=== PATIENT | female | born 1970 | race Caucasian/White ===

== ENCOUNTER 2020-11-23 07:54 | Outpatient (CLI) | payer BC, SELFPAY ==
--- NOTE | ~2020-11-23 | MM_ITS ---
EXAMINATION: MM screening silvia BI w braydon HISTORY: Screening TECHNIQUE: Craniocaudal and mediolateral oblique 3-D tomosynthesis images were obtained and synthetic 2-D images were generated. CAD analysis was submitted and interpreted. COMPARISON: 06/09/2017 BREAST PARENCHYMAL COMPOSITION: There are scattered areas of fibroglandular density. FINDINGS: There is no evidence of suspicious mass, calcification, or architectural distortion to sugg est malignancy in either breast. There has been no suspicious interval change. IMPRESSION: 1. No mammographic evidence of malignancy. 2. Recommend routine screening mammography in one year. BI-RADS Category 1: Negative Reviewed, dictated and finalized at location A.
== END 2020-11-23 07:55 | disposition home or self-care (01) ==
PROVIDERS: PCP Family Medicine; Visit Provider Family Medicine
DX: Z12.31 Encounter for screening mammogram for malignant neoplasm of breast (principal)
CPT/HCPCS: 77063; 77067

== ENCOUNTER 2021-11-24 11:35 | Emergency (ER) | payer BC, SELFPAY ==
--- NOTE | ~2021-11-24 | XR_ITS ---
EXAMINATION: XR chest 2V DATE: 11/24/2021 12:36 INDICATION: Midsternal chest pain and pressure TECHNIQUE: PA and lateral views of the chest are obtained. COMPARISON: 04/02/2013 FINDINGS: The lungs are free of acute opacities. There is no pleural effusion or pneumothorax. The ca rdiomediastinal silhouette is normal. There is mild thoracic spondylosis. There is a partially imaged right internal ureteral stent. IMPRESSION: 1. No acute cardiopulmonary abnormality. Reviewed, dictated and finalized at location A.
[2021-11-24 11:37] VITALS: BP 163/100; PULSE 74; RESP 14; TEMP 36.6; O2SAT 100
--- NOTE | 2021-11-24 11:43 | ECG_ITS ---
Measurements Intervals [place] Rate: 69 P: -11 IA: 112 QRS: 52 QRSD: 90 T: 7 QT: 372 QTc: 399 Interpretive Statements SINUS RHYTHM WITH SHORT IA INTERVAL ST ABNORMALITY IN LATERAL LEADS- CONSIDER ISCHEMIA BASELINE ARTIFACT- I, III, AVL ABNORMAL ECG Electronically Signed On 11-24-2021 18:54:41 CDT by Yury Shafer D.O.
[2021-11-24 11:58] LABS: Basophils Percent Auto 0.8 % (0.2-1.2); Eosinophils Absolute Auto 0.2 K/mm3 (0-0.3); Eosinophils Percent Auto 3.1 % (0-4.4); Hematocrit 41.7 % (37.0-47.0); Hemoglobin 14.2 g/dL (12.0-15.0); Immature Granulocyte Absolute 0.01 K/mm3 (0.00-0.031); Immature Granulocyte Percent A 0.2 % (0-0.5); Lymphocytes Absolute Auto 2.22 K/mm3 (0.9-3.2); Lymphocytes Percent Auto 45.8 % (18.3-44.2); Mean Corpuscular HGB Conc 34.1 g/dl (32-36); Mean Corpuscular Hemoglobin 30.4 pg (26-34); Mean Corpuscular Volume 89.3 fl (80-100); Mean Platelet Volume 9.9 fl (7.4-10.4); Monocytes Absolute Auto 0.4 K/mm3 (0.1-0.6); Monocytes Percent Auto 7.6 % (2.6-8.5); Neutrophils Absolute Auto 2.1 K/mm3 (1.3-6.7); Neutrophils Percent Auto 42.5 % (45.5-73.1); Platelet Count Result 257 k/mm3 (150-375); Red Blood Count 4.67 M/mm3 (4.2-5.4); Red Cell Distribution Width 12.9 % (11.5-14.5); White Blood Count 4.9 K/mm3 (4.5-10.0)
--- NOTE | 2021-11-24 11:59 | PC.NURSE ---
PT took 2 - 324mg aspirin at home prior to arrival
[2021-11-24 12:09] LABS: Alanine Aminotransferase 34 U/L (6-35); Albumin Level 4.5 g/dL (3.5-5.1); Alkaline Phosphatase 92 U/L (38-126); Anion Gap 8 mmol/L (8-16); Aspartate Amino Transferase 40 U/L (14-36); Bilirubin,Total 0.6 mg/dL (0.2-1.3); Blood Urea Nitrogen 23 mg/dL (7-17); Calcium 9.5 mg/dL (8.4-10.2); Carbon Dioxide 25 mmol/L (22-30); Chloride 105 mmol/L (98-107); Estimated CRCL calculation 57 ml/min; Estimated Glomerular Filt Rate 58; Glucose 126 mg/dL (65-110); Lipase 139 U/L (23-300); Potassium 3.7 mmol/L (3.4-5.0); Sodium 138 mmol/L (137-145)
[2021-11-24 12:11] LABS: INR 0.9; Prothrombin Time 11.8 Seconds (11.1-14.7)
[2021-11-24 12:19] LABS: Troponin I < 0.012 ng/mL (0.000-0.034)
--- NOTE | 2021-11-24 12:58 | ED.CHESTPAIN ---
HPI - Chest Pain General Chief Complaint: Chest Pain Stated Complaint: chest pain Time Seen by Provider: 11/24/21 12:13 Source: patient Limitations: no limitations History of Present Illness HPI narrative: Patient is 51 years old white female came to the emergency room because sudden onset of retrosternal chest dull aching pain started while trying to fix her bed. Was 10 out of 10, denies any radiation, she denies any fever, chills, nausea, vomiting, shortness of breath, back pain or having similar symptoms. History of EGD July 2021 for GERD. Currently her pain Is 4 out of 10. Patient is a status post lithotripsy and stent placement at the right kidney 1 week ago, finished antibiotic 2 days ago. She denies any history of hypertension, hyperlipidemia or diabetes. Her mom had a heart attack at age 60. Patient does not smoke or drink or uses drugs. Related Data Home Medications Medication Instructions Recorded Confirmed esomeprazole magnesium 20 mg 20 mg PO DAILY 06/10/21 06/10/21 tablet,delayed release fluticasone propionate 50 1 spray INTRANASAL BID 06/10/21 06/10/21 mcg/actuation nasal spray,suspension Allergies Allergy/AdvReac Type Severity Reaction Status Date / Time acetaminophen Allergy Intermediate Verified 03/11/19 12:05 hydrocodone Allergy Intermediate Verified 03/11/19 12:05 Review of Systems Review of Systems: All systems reviewed & are unremarkable except as noted in HPI and below PMFSH Past Medical History Medical History Abnormal fasting glucose Acute low back pain with right-sided sciatica Adult BMI 32.0-32.9 kg/sq m Anxiety Benign colon polyp last colonoscopy 2018 with 1 polyp with recheck in 5 years. BMI 30.0-30.9,adult BMI 33.0-33.9,adult Breast cancer screening by mammogram Normal mammogram 11/23/2020 COVID (04/25/21) Fully vaccinated and then COVID illness Diverticulitis Diverticulosis of colon Epigastric pain Fibromyalgia GERD (gastroesophageal reflux disease) Leukopenia Nasal congestion Obstructive sleep apnea on CPAP Renal and ureteric calculus Renal calculi Seasonal allergic rhinitis Urethral irritation UTI (urinary tract infection) Surgical History Surgical History H/O: hysterectomy (~2012) History of partial hysterectomy (~2007) Family History Family History Mother Acute myocardial infarction Father Hypertension COPD (chronic obstructive pulmonary disease) Grandparent COPD (chronic obstructive pulmonary disease) Cerebrovascular accident Cancer Grandparent Suicide Grandparent Cancer Arthritis Grandparent Cerebrovascular accident Cancer Sibling Hypertension Social History Social History Smoking status: Never smoker Alcohol intake: current Alcohol use details: a few 2 to 3 times a month Substance use: never Substance use type: does not use Exam Narrative: General appearance: Well-developed, well-nourished Skin: Normal color Head: Normocephalic, nontraumatic Eyes: Clear conjunctiva ENT: Oropharynx normal, ears normal, nose normal Neck: Supple, nontender Chest and respiratory: Airway patent, no respiratory distress, no accessory muscle use Heart: Regular rate/rhythm Abdomen: Soft, mild epigastric tenderness, no organomegaly, quiet bowel sounds Vascular: Normal peripheral pulses, normal capillary refill. Musculoskeletal: Normal range of motion, nontender back Neurologic: Alert and oriented ?3, HEAD OF COMMISSION DEPARTMENT is normal as tested, no gross motor deficit
[2021-11-24 13:12] LABS: Appearance Urine Clear (Clear); Bilirubin Urine Negative (Negative); Blood Urine 2+ (Negative); Glucose Urine UA Negative (Negative); Ketones Urine Negative (Negative); Leukocyte Esterase Ur 2+ LEU/UL (Negative); Nitrate Urine Negative (Negative); Protein Urine Negative (Negative); Specific Grav Ur 1.015 (1.001-1.035); Urobilinogen Urine 0.2 mg/dL (<2.0); pH Urine 7.5 (5.0-9.0)
[2021-11-24] MEDS: ONDANSETRON INJ 4 MG/2 ML VIAL IV PUSH (13:12)
[2021-11-24] MEDS: SODIUM CHLORIDE 0.9% IV 1,000 ML 999 ML IV CONT (13:12)
[2021-11-24 13:15] LABS: Add Urine Microscopic? YES; Color Urine Light Yellow (Yellow)
[2021-11-24 13:15] LABS: Lipase 138 U/L (23-300)
[2021-11-24 13:16] LABS: D Dimer 0.44 ug/mL (<0.48)
[2021-11-24 13:19] LABS: Bacteria Urine Trace /hpf; Mucus Urine Rare /lpf; Squamous Epithelial Cell Urine Rare /hpf (Few); WBC Urine 21-30 /hpf
[2021-11-24] MEDS: MORPHINE SULFATE (*CRX) 4 MG/ML INJ IV PUSH (13:19)
[2021-11-24 13:23] VITALS: BP 127/76; PULSE 71; RESP 16; O2SAT 99
[2021-11-24 13:31] VITALS: O2SAT 99
[2021-11-24 14:59] VITALS: BP 134/86; PULSE 60; RESP 18; O2SAT 98
[2021-11-24 15:12] LABS: Troponin I < 0.012 ng/mL (0.000-0.034)
--- NOTE | 2021-11-24 15:28 | ECG_ITS ---
Measurements Intervals [place] Rate: 50 P: 34 MS: 118 QRS: 36 QRSD: 82 T: 16 QT: 428 QTc: 391 Interpretive Statements SINUS BRADYCARDIA WITH SHORT MS INTERVAL BASELINE ARTIFACT- I, III BORDERLINE ECG Electronically Signed On 11-24-2021 18:57:31 CDT by Yury Shafer D.O.
[2021-11-24 15:56] VITALS: BP 122/80; PULSE 61; RESP 16; O2SAT 100
== END 2021-11-24 15:55 | disposition home or self-care (01) ==
PROVIDERS: Emergency Medicine; Emergency Provider Emergency Medicine; PCP Family Medicine
DX: R07.9 Chest pain, unspecified (principal); N39.0 Urinary tract infection, site not specified; K21.9 Gastro-esophageal reflux disease without esophagitis; G47.33 Obstructive sleep apnea (adult) (pediatric); M79.7 Fibromyalgia; Z86.010 Personal history of colon polyps; Z86.16 Personal history of COVID-19; Z87.442 Personal history of urinary calculi; R94.31 Abnormal electrocardiogram [ECG] [EKG]; R00.1 Bradycardia, unspecified
CPT/HCPCS: 36415; 71046; 80053; 81001; 83690; 84484; 85025; 85380; 85610; 85730; 87077; 87086; 87088; 93005; 96361; 96374; 96375; 99284; J2270; J2405; J7030

== ENCOUNTER 2022-03-11 10:58 | Outpatient (CLI) | payer BC, SELFPAY ==
--- NOTE | ~2022-03-11 | XR_ITS ---
EXAMINATION: XR abdomen/kub 1V INDICATION: History of urolithiasis TECHNIQUE: Supine views of the abdomen were obtained on 2 radiographs. COMPARISON: None FINDINGS: There appear to be at least three adjacent stones of the left kidney which measure 2 mm, 4 mm, and 5 mm. No stones are identified in the right kidney or along the expected courses of ureters. The visualized lung bases are clear. The bowel gas pattern is normal. A moderate volume of colonic st ool is present. There is mild osteoarthritis of the hips. IMPRESSION: 1. Left nephrolithiasis. Reviewed, dictated and finalized at location B. IMPRESSION: 1. Left nephrolithiasis.
== END 2022-03-11 10:59 | disposition home or self-care (01) ==
LOC: ANHIMG 11:00
PROVIDERS: PCP Family Medicine; Visit Provider Urology
DX: N20.0 Calculus of kidney (principal)
CPT/HCPCS: 74018

== ENCOUNTER 2022-05-03 09:51 | Emergency (ER) | payer BC, SELFPAY ==
--- NOTE | ~2022-05-03 | CT_ITS ---
EXAMINATION: CT abdomen pelvis wo con DATE: 05/03/2022 10:37 INDICATION: Low abdominal pain. TECHNIQUE: Computed tomography (CT) of the abdomen and pelvis was performed without intravenous contr ast. Automated exposure control and iterative reconstruction technique were employed. The dose-length product was 293.11 mGy-cm. COMPARISON: CT abdomen and pelvis 01/04/2012 FINDINGS: The visualized portions of the lung bases demonstrate mild atelectasis. No pleural effusion . The heart size is normal. No pericardial effusion. The liver, gallbladder, spleen, pancreas, and ad renal glands are normal. There are approximately 4 stones in right kidney measuring up to 13 mm. Ther e are approximately 5 stones in left kidney measuring up to 3 mm. There is mild left hydronephrosis a nd hydroureter. There is a 3 mm stone in distal left ureter. There is diverticulosis of the colon wit hout evidence of diverticulitis. There are no dilated loops of bowel. The appendix is not visualized. There are no pathologically enlarged lymph nodes. There is no free intraperitoneal fluid. There is m oderate thoracic spondylosis and mild lumbar spondylosis. IMPRESSION: 1. 3 mm stone in distal left ureter with mild left hydronephrosis and hydroureter. 2. Bilateral nonobstructing kidney stones. Reviewed, dictated and finalized at location A. IMPRESSION: 1. 3 mm stone in distal left ureter with mild left hydronephrosis and hydrouret er. 2. Bilateral nonobstructing kidney stones.
[2022-05-03 09:53] VITALS: BP 182/88; PULSE 59; RESP 18; TEMP 36.1; O2SAT 100
--- NOTE | 2022-05-03 10:14 | ED.GENADULT ---
HPI - General Adult General Chief complaint: Abdominal Pain Stated complaint: post op lithotripsy, fever/pain Time Seen by Provider: 05/03/22 09:53 History of Present Illness HPI narrative: 51-year-old female presented to the emergency department for evaluation of worsening left flank pain. Patient does have a significant history of ureteral calculi. Patient had lithotripsy done on Thursday by Dr. Avila. Patient states that she had been pain-free and was able to do her water aerobics yesterday. Patient woke up this morning and was having intense left flank pain. Patient is having some associated nausea and vomiting. Patient states she felt warm at home but did not measure her temperature. Patient was afebrile upon arrival to the emergency department. Patient has a past medical history of fibromyalgia, urinary tract infection, ureteral calculi. Related Data Home Medications Medication Instructions Recorded Confirmed esomeprazole magnesium 20 mg 20 mg PO DAILY 06/10/21 06/10/21 tablet,delayed release (Nexium 24HR) fluticasone propionate 50 1 spray intranasal BID 06/10/21 06/10/21 mcg/actuation nasal spray,suspension (Flonase Allergy Relief) Allergies Allergy/AdvReac Type Severity Reaction Status Date / Time acetaminophen Allergy Intermediate Verified 03/11/19 12:05 hydrocodone Allergy Intermediate Verified 03/11/19 12:05 Review of Systems Review of Systems: CONSTITUTIONAL: Denies fever, chills, or sweats. EYES: Denies visual changes, redness, or discharge. ENT: Denies rhinorrhea, congestion, sore throat, or otalgia. CARDIOVASCULAR: Denies chest pain, palpitations, or edema. RESPIRATORY: Denies cough or dyspnea. GASTROINTESTINAL: See HPI GENITOURINARY: See HPI SKIN: Denies rash or itching. MUSCULOSKELETAL: Denies back pain, joint pain, or myalgia. NEUROLOGIC: Denies headache, numbness, or weakness. PSYCHIATRIC: Denies anxiety or depression. [facility] Past Medical History Medical History Abnormal fasting glucose Acute low back pain with right-sided sciatica Adult BMI 32.0-32.9 kg/sq m Anxiety Benign colon polyp last colonoscopy 2018 with 1 polyp with recheck in 5 years. BMI 30.0-30.9,adult BMI 33.0-33.9,adult Breast cancer screening by mammogram Normal mammogram 11/23/2020 COVID (04/25/21) Fully vaccinated and then COVID illness Diverticulitis Diverticulosis of colon Epigastric pain Fibromyalgia GERD (gastroesophageal reflux disease) Leukopenia Nasal congestion Obstructive sleep apnea on CPAP Renal and ureteric calculus Renal calculi Seasonal allergic rhinitis Urethral irritation UTI (urinary tract infection) Surgical History Surgical History H/O: hysterectomy (~2012) History of partial hysterectomy (~2007) Family History Family History Mother Acute myocardial infarction Father Hypertension COPD (chronic obstructive pulmonary disease) Grandparent COPD (chronic obstructive pulmonary disease) Cerebrovascular accident Cancer Grandparent Suicide Grandparent Cancer Arthritis Grandparent Cerebrovascular accident Cancer Sibling Hypertension Social History Social History Smoking status: Never smoker Alcohol intake: current Alcohol use details: a few 2 to 3 times a month Substance use: never Substance use type: does not use Exam Narrative: APPEARANCE: Well appearing, no pain, no distress, well-nourished. HEAD: normocephalic, atraumatic. EYES: PERRLA/EOMI, conjunctivae clear. NOSE: Normal no drainage NECK: Supple. No adenopathy, no masses. RESPIRATORY: Airway patent, respirations nonlabored. Clear to auscultation bilaterally, no rales, rhonchi, wheezing. CARDIOVASCULAR: Regular rate and rhythm without murmu
[2022-05-03] MEDS: MORPHINE SULFATE (*CRX) 4 MG/ML INJ IV PUSH (10:19)
[2022-05-03] MEDS: ONDANSETRON INJ 4 MG/2 ML VIAL IV PUSH (10:19)
[2022-05-03 10:25] LABS: Basophils Percent Auto 0.3 % (0.2-1.2); Eosinophils Absolute Auto 0.1 K/mm3 (0-0.3); Eosinophils Percent Auto 1.2 % (0-4.4); Hematocrit 41.4 % (37.0-47.0); Hemoglobin 13.4 g/dL (12.0-15.0); Immature Granulocyte Absolute 0.03 K/mm3 (0.00-0.031); Immature Granulocyte Percent A 0.5 % (0-0.5); Lymphocytes Absolute Auto 1.19 K/mm3 (0.9-3.2); Lymphocytes Percent Auto 18.3 % (18.3-44.2); Mean Corpuscular HGB Conc 32.4 g/dl (32-36); Mean Corpuscular Hemoglobin 30.2 pg (26-34); Mean Corpuscular Volume 93.2 fl (80-100); Mean Platelet Volume 10.2 fl (7.4-10.4); Monocytes Absolute Auto 0.4 K/mm3 (0.1-0.6); Monocytes Percent Auto 6.5 % (2.6-8.5); Neutrophils Absolute Auto 4.8 K/mm3 (1.3-6.7); Neutrophils Percent Auto 73.2 % (45.5-73.1); Platelet Count Result 265 k/mm3 (150-375); Red Blood Count 4.44 M/mm3 (4.2-5.4); Red Cell Distribution Width 13.2 % (11.5-14.5); White Blood Count 6.5 K/mm3 (4.5-10.0)
[2022-05-03 10:32] LABS: Add Urine Microscopic? YES; Appearance Urine Cloudy (Clear); Bilirubin Urine Negative (Negative); Blood Urine 3+ (Negative); Color Urine Yellow (Yellow); Glucose Urine UA Negative (Negative); Ketones Urine Negative (Negative); Leukocyte Esterase Ur 1+ LEU/UL (Negative); Mucus Urine Rare /lpf; Nitrate Urine Negative (Negative); Protein Urine Negative (Negative); RBC Urine >75 /hpf (0-2); Specific Grav Ur 1.018 (1.001-1.035); Squamous Epithelial Cell Urine Occasional /hpf (Few); Urobilinogen Urine Negative mg/dL (<2.0); WBC Urine 31-50 /hpf
[2022-05-03 10:36] LABS: Lactic Acid Reflex 1.3 mmol/L (0.7-2.0)
[2022-05-03 10:38] LABS: Alanine Aminotransferase 34 U/L (6-35); Albumin Level 4.6 g/dL (3.5-5.1); Alkaline Phosphatase 70 U/L (38-126); Anion Gap 11 mmol/L (8-16); Aspartate Amino Transferase 31 U/L (14-36); Bilirubin,Total 0.6 mg/dL (0.2-1.3); Blood Urea Nitrogen 28 mg/dL (7-17); Calcium 8.8 mg/dL (8.4-10.2); Carbon Dioxide 27 mmol/L (22-30); Chloride 100 mmol/L (98-107); Estimated CRCL calculation 64 ml/min; Estimated Glomerular Filt Rate > 60; Glucose 118 mg/dL (65-110); Potassium 4.1 mmol/L (3.4-5.0); Sodium 138 mmol/L (137-145)
[2022-05-03] MEDS: KETOROLAC 15 MG/ML VIAL (*BKC) IV PUSH (11:08)
[2022-05-03 11:14] VITALS: BP 159/94; PULSE 60; RESP 18; O2SAT 100
[2022-05-03 11:45] VITALS: BP 152/86; PULSE 91; RESP 18; O2SAT 98
[2022-05-03] MEDS: TAMSULOSIN HCL 0.4 MG CAPSULE PO (11:48)
[2022-05-03 12:01] VITALS: BP 139/81; PULSE 90; RESP 19; O2SAT 98
== END 2022-05-03 13:01 | disposition home or self-care (01) ==
PROVIDERS: Emergency Provider Emergency Medicine; PCP Family Medicine
DX: N13.2 Hydronephrosis with renal and ureteral calculous obstruction (principal); G47.33 Obstructive sleep apnea (adult) (pediatric); K21.9 Gastro-esophageal reflux disease without esophagitis; M79.7 Fibromyalgia; F41.9 Anxiety disorder, unspecified
CPT/HCPCS: 36415; 74176; 80053; 81001; 83605; 85025; 87086; 96365; 96375; 99284; A9270; J0696; J1885; J2270; J2405

== ENCOUNTER 2025-04-04 10:16 | Outpatient (CLI) | payer BC, SELFPAY ==
--- NOTE | 2025-04-04 10:32 | ECG_ITS ---
Test Date: 2025-04-04 10:43:11 Measurements Intervals [place] Rate: 75 P: 29 SC: 125 QRS: 40 QRSD: 84 T: 13 QT: 382 QTc: 428 Interpretive Statements SINUS RHYTHM NORMAL ECG No previous ECG available for comparison Electronically Signed On 04-04-2025 12:09:57 CDT by Ronal Dennis M.D.
--- NOTE | 2025-04-04 10:44 | EST_ITS ---
Patient Info Name: Kathie Ragland Age: 54 years : 1970 Gender: Female Ht: 52 in Wt: 170 lbs BSA: 1.74 m2 HR: 73 bpm BP: 124 / 59 mmHg Exam Date: 04/04/2025 10:44 AM Patient Status: O Admit Date: 04/04/2025 Exam Type: CA stress test treadmill A treadmill exercise stress test was performed. Staff Attending Provider: Felipa Mahmood Exercise Technologist: Faiza Ojeda Exercise Physician: Yury Shafer DO Summary 1. 1. Negative Micheal exercise stress test for ischemic ST changes by ECG criteria. 2. 2. Good functional capacity, achieving 8.9 METs of workload. 3. 3. Appropriate HR response to exercise. 4. 4. Appropriate HR recovery at 1 minute post exercise. 5. 5. No imaging with stress testing. 6. 6. Patient informed of the above results. Protocol: Micheal Stress ECG Details Stage: REST Duration (min): 2 min : 34 sec Speed (mph): 0.0 Grade (%): 0 HR (bpm): 70 SBP (mmHg): 124 DBP (mmHg): 59 METS: --- Stage: REST Duration (min): 8 min : 6 sec Speed (mph): 0.0 Grade (%): 0 HR (bpm): 83 SBP (mmHg): 124 DBP (mmHg): 59 METS: --- Stage: STAGE 1 Duration (min): 1 min : 0 sec Speed (mph): 1.7 Grade (%): 10 HR (bpm): 98 SBP (mmHg): 124 DBP (mmHg): 59 METS: --- Stage: STAGE 1 Duration (min): 2 min : 0 sec Speed (mph): 1.7 Grade (%): 10 HR (bpm): 103 SBP (mmHg): 124 DBP (mmHg): 59 METS: --- Stage: STAGE 1 Duration (min): 3 min : 0 sec Speed (mph): 1.7 Grade (%): 10 HR (bpm): 105 SBP (mmHg): 124 DBP (mmHg): 59 METS: --- Stage: STAGE 2 Duration (min): 1 min : 0 sec Speed (mph): 2.5 Grade (%): 12 HR (bpm): 120 SBP (mmHg): 124 DBP (mmHg): 59 METS: --- Stage: STAGE 2 Duration (min): 2 min : 0 sec Speed (mph): 2.5 Grade (%): 12 HR (bpm): 127 SBP (mmHg): 124 DBP (mmHg): 59 METS: --- Stage: STAGE 2 Duration (min): 3 min : 0 sec Speed (mph): 2.5 Grade (%): 12 HR (bpm): 133 SBP (mmHg): 124 DBP (mmHg): 59 METS: --- Stage: STAGE 3 Duration (min): 1 min : 0 sec Speed (mph): 3.4 Grade (%): 14 HR (bpm): 148 SBP (mmHg): 124 DBP (mmHg): 59 METS: --- Stage: STAGE 3 Duration (min): 1 min : 8 sec Speed (mph): 3.4 Grade (%): 14 HR (bpm): --- SBP (mmHg): 124 DBP (mmHg): 59 METS: --- Stage: RECOVERY Duration (min): 0 min : 51 sec Speed (mph): 0.0 Grade (%): 0 HR (bpm): --- SBP (mmHg): 124 DBP (mmHg): 59 METS: --- Stage: RECOVERY Duration (min): 1 min : 51 sec Speed (mph): 0.0 Grade (%): 0 HR (bpm): 109 SBP (mmHg): 124 DBP (mmHg): 59 METS: --- Stage: RECOVERY Duration (min): 2 min : 51 sec Speed (mph): 0.0 Grade (%): 0 HR (bpm): 92 SBP (mmHg): 150 DBP (mmHg): 64 METS: --- Stage: RECOVERY Duration (min): 3 min : 12 sec Speed (mph): 0.0 Grade (%): 0 HR (bpm): 91 SBP (mmHg): 150 DBP (mmHg): 64 METS: --- Rest HR: 83 bpm Peak HR: 149 bpm Rest Sys BP: 124 mmHg Peak Sys BP: 150 mmHg Max Pred HR: 166 bpm % Max Pred HR: 90 % Target HR: 141 bpm Max RPP: 22,350 bpm*mmHg Heredia Score: -2 Termination Reason: Reached target heart rate or workload Cardiac Symptoms: Shortness of breath Max ST Seg Deviation: -1.90 mm Total Time: 7 min : 8 sec Rest Thomas BP: 59 mmHg Peak Thomas BP: 64 mmHg Angina Score: None Total METS: 8.9 Resting ECG Sinus rhythm. Stress ECG Borderline ST-T wave abnormality in inferior leads. Arrhythmias None. Report Signatures
--- OUTSIDE RECORDS SUMMARY | 2025-04-04 11:58 | XMS_ITS | Patient Health Record ---
Author Organization [facility] Address [address] [facility] [address] [place], [place] [id number] Care Team Providers Care Director Religious Education Name Role Phone THEODORE SCHILLING Primary Care Provider Nancy Oneal Unavailable [phone] ALLERGIES Allergen (clinical drug ingredient) Drug/Non Drug Allergy documented on EMR Reaction Allergy Type Onset Date Status Vicodin Unknown Drug Allergy Active REASON FOR REFERRAL No Information MEDICATIONS Medication SIG (Take, Route, Frequency, Duration) Notes Start Date End Date Status Cyclobenzaprine Hydrochlorid e 5 mg 1-2 tab(s) orally qhs prn for 30 days 10/01/2016 Active naproxen 500 mg 1 tab(s) orally 2 ti mes a day for 30 day(s) 09/05/2016 Active SOCIAL HISTORY Tobacco Use: Social History Observation Description Date Details (start date - stop date) Never Smoker NA - NA Sex Assigned At : Social History Observation Description Sex Assigned At Unknown Tobacco Use: Question Answer Notes Smoking Status nonsmoker PROBLEMS Problem Type ICD Code Onset Dates Problem Status W/U Status Risk SNOMED Code Notes Problem Fibromyalgia (M79.7) Active confirmed 584529347 Problem Never smoked cigarettes (Z78.9) Active confirmed 145409095 PLAN OF TREATMENT No Information Insurance Providers Payer Name Payer Address Payer Phone Subscriber Number Group Number Insured Name Patient Relationship to Insured Coverage Start Date Coverage End Date [employer] PPO [address] [address] [place] [address] [phone] [id number] Bruce Ragland Spouse - patient is the spouse of the insured 2012 MEDICAL (GENERAL) HISTORY Medical History History ICD Code bruises easily blurred vision Double vision vision - flashes Ringing in ears difficulty swallowing hoarseness swollen glands in neck diabetes chest pain high blood pressure irregular heart beat varicose veins bloating hemorrhoids weight loss Kidney stones Hot Flashes chicken pox Surgical History Surgery Date(Month/Year) Kidney stones C section 1998 partial hsyterectomy 2007 full hysterectomy 2012
--- OUTSIDE RECORDS SUMMARY | 2025-04-04 11:58 | XMS_ITS | Clinical Summary ---
Author Organization [facility] [employer] Address [address] [place] [address] Care Team Providers Care Food And Beverage Order Clerk Name Role Phone Mark Colmenares MD Primary Care Provider Source Comments [facility],non-owned Affiliates and Associated Physician Practices is amultiple site organization consisting of ambulatory clinics and hospital sitesin [place], [place], [place] and [place]. This disclosure is being madepursuant to the Care Everywhere program and may not contain all information available regarding this patient. Last updated 18.[facility] [employer] Allergies Active Allergy Reactions Criticality Noted Date Comments Hydrocodone Itching Low 08/16/2018 Morphine Vomiting 07/30/2021 Medications * Be aware that medications may not be up to date on this document. Alwaysverify current medications with the patient. esomeprazole (NEXIUM) 20 MG capsule Take 20 mg by mouth daily before breakfast Active Active Problems Problem Noted Date Diagnosed Date Gastroesophageal reflux disease with esophagitis 11/04/2021 Gastritis without bleeding 11/04/2021 Abdominal pain 11/18/2018 Change in bowel habit 11/18/2018 Colitis 10/18/2018 Diverticulitis 10/18/2018 Social History Tobacco Use Types Packs/Day Years Used Date Smoking Tobacco: Never Smokeless Tobacco: Never Alcohol Use Standard Drinks/Week Comments Yes 0 (1 standard drink = 0.6 oz pur e alcohol) rare Comments No Sex and Gender Information Value Date Recorded Sex Assigned at Not on file Legal Sex Female 5:59 AM SOFTWARE TEST AND VALIDATION ENGINEER Gender Identity Not on file Sexual Orientation Not on file Last Filed Vital Signs Vital Sign Reading Time Taken Comments Blood Pressure 125/76 11/04/2021 10:28 AM CDT Pulse 60 11/04/2021 10:28 AM CDT Temperature 37.1 C (98.7 F) 07/30/2021 11:37 AM SOFTWARE TEST AND VALIDATION ENGINEER Respiratory Rate 23 07/30/2021 12:00 PM SOFTWARE TEST AND VALIDATION ENGINEER Oxygen Saturation 99% 11/04/2021 10:28 AM CDT Inhaled Oxygen Concentration - - Weight 78.5 kg (173 lb) 11/04/2021 10:28 AM CDT Height 157.5 cm (5' 2) 07/30/2021 9:33 AM SOFTWARE TEST AND VALIDATION ENGINEER Body Mass Index 31.64 07/30/2021 9:33 AM SOFTWARE TEST AND VALIDATION ENGINEER Plan of Treatment Health Maintenance Due Date Last Done Comments COLOGUARD (AGES 45-75) - COL ON CA SCREENING 1970 CT COLONOGRAPHY - COLON CA SCREENING 1970 FIT - COLON CA SCREENING 1970 FLEX SIG - COLON CA SCREENING 1970 LIPID TESTING 1970 MAMMOGRAM 1970 HIV SCREENING 1985 HEPATITIS C SCREENING 09/01/1988 DTAP/TDAP/TD VACCINES (1 - Tdap) 1989 HEPATITIS B VACCINE (1 of 3 - 19+ 3-dose series) 1989 PNEUMOCOCCAL VACCINE 50+ (1 of 1 - PCV) 2020 ZOSTER VACCINE (1 of 2) 2020 SCREENING FOR DIABETES 10/30/2021 09/24/2012 DEPRESSION SCREENING 07/20/2024 COVID-19 VACCINE (1 - 2023-2 5 season) 2025 INFLUENZA VACCINE (#1) 2025 COLON MONITORING 01/04/2029 01/04/2019, 01/04/2019 COLONOSCOPY - COLON CA SCREENING 01/04/2029 01/04/2019, 01/04/2019 Colorectal Cancer Screening 01/04/2029 HIB VACCINE Aged Out No longer eligi ble based on patient's age to complete this topic HPV VACCINE Aged Out No longer eligi ble based on patient's age to complete this topic MENINGOCOCCAL (Group B) VACCINE SHARED DECISION-MAKING Aged Out No longer eligible based on patient's age to complete this topic MENINGOCOCCAL GROUPS A/C/Y/W VACCINE Aged Out No longer eligible b ased on patient's age to complete this topic Medical Devices Implanted Type Area Operating System Designer Device Identifier Shelf Expiration Date Model / Serial / Lot Percuflex 7fr X 24cm Stent Implanted:Qty: 1 on 11/23/2012 by Michel Villa MD at [facility] 07/20/2015 [id number] / / [id number] Procedures Procedure Name Priority Date/Time Associated Diagnosis Comments ENDOSCOPY, COLON, DIAGNOSTIC Routine 01/04/2019 8:45 AM CDT Diarrhea, unspecified type COMPREHENSIVE METABOLIC PANEL DESHAUN 09/24/2012 10:19 AM SOFTWARE TEST AND VALIDATION ENGINEER Preoperative examination, unspecified from Last 3 Months or Most Recently Relevant to Health Maintenance Results * ENDOSCOPY, COLON, DIAGNOSTIC (01/04/2019 8:45 AM CDT) Report Endoscopy POC _ Patient Name: Kathie Ragland Procedure Date: 01/04/2019 8:45 AM Date of : 1970 Admit Type: Outpatient Age: 48 Gender: Female Attending MD: Katharine Baum MD _ Procedure: Colonoscopy Indications: Abdominal pain in the left lower quadrant, Chronic diarrhea, Follow-up of diverticulitis. persistent culture negative diarrhea following an episode of diverticulitis and antibiotics. Symptoms now resolving. Providers: Katharine Baum MD (Doctor) Referring MD: Micheal Little MD (Referring MD) Medicines: Monitored Anesthesia Care Complications: No immediate complications. _ Procedure: Pre-Anesthesia Assessment: - Prior to the procedure, a History and Physical was performed, and patient medications and allergies were reviewed. The patient's tolerance of previous anesthesia was also reviewed. The risks and benefits of the procedure and the sedation options and risks were discussed with the patient. All questions were answered, and informed consent was obtained. Prior Anticoagulants: The patient has taken no previous anticoagulant or antiplatelet agents. ASA Grade Assessment: I - A normal, healthy patient. After reviewing the risks and benefits, the patient was deemed in satisfactory condition to undergo the procedure. After I obtained informed consent, the scope was passed under direct vision. Throughout the procedure, the patient's blood pressure, pulse, and oxygen saturations were monitored continuously. The Colonoscope was introduced through the anus and advanced to the cecum, identified by appendiceal orifice and ileocecal valve. The colonoscopy was performed without difficulty. The patient tolerated the procedure well. The quality of the bowel preparation was excellent. The ileocecal valve, appendiceal orifice, and rectum were photographed. Findings: The perianal and digital rectal examinations were normal. Pertinent negatives include no palpable rectal lesions. The retroflexed view of the distal rectum and anal verge was normal and showed no anal or rectal abnormalities. A diffuse area of mildly erythematous mucosa was found in the sigmoid colon. Minimal, 1+ erythema limited to sigmoid, finding nonspecific. This was biopsied with a cold forceps for histology. Estimated blood loss: none. The entire examined colon appeared normal. Multiple small-mouthed diverticula were found in the sigmoid colon. _ Impression: - The distal rectum and anal verge are normal on retroflexion view. - Erythematous mucosa in the sigmoid colon. Biopsied. - The entire examined colon is normal. - Diverticulosis in the sigmoid colon. Recommendation: - Patient has a contact number available for emergencies. The signs and symptoms of potential delayed complications were discussed with the patient. Return to normal activities tomorrow. Written discharge instructions were provided to the patient. - Resume previous diet. - Continue present medications. - Await pathology results. - Repeat colonoscopy in 10 years for surveillance. - Return to my office PRN. - Return to primary care physician as previously scheduled. Procedure Code(s): --- Professional --- 94536, Colonoscopy, flexible; with biopsy, single or multiple --- Technical --- 96405, Colonoscopy, flexible; with biopsy, single or multiple Diagnosis Code(s): --- Professional --- K63.89, Other specified diseases of intestine R10.32, Left lower quadrant pain K52.9, Noninfective gastroenteritis and colitis, unspecified K57.32, Diverticulitis of large intestine without perforation or abscess without bleeding K57.30, Diverticulosis of large intestine without perforation or abscess without bleeding --- Technical --- K63.89, Other specified diseases of intestine R10.32, Left lower quadrant pain K52.9, Noninfective gastroenteritis and colitis, unspecified K57.32, Diverticulitis of large intestine without perforation or abscess without bleeding K57.30, Diverticulosis of large intestine without perforation or abscess without bleeding CPT copyright 2017 [employer]. All rights reserved. The codes documented in this report are preliminary and upon slot floor attendant review may be revised to meet current compliance requirements. Dr. Katharine Baum MD ___ Katharine Baum MD 01/04/2019 9:27:46 AM This report has been signed electronically. Number of Addenda: 0 Note Initiated On: 01/04/2019 8:45 AM [facility] ENDOSCOPY 01/04/2019 8:45 AM CDT us aKtharine Baum MD GI PROCEDURE ORDERABLES Kev cale Result - [place] [address] * COMPREHENSIVE METABOLIC PANEL (09/24/2012 10:19 AM [facility]) Glucose 94 74 - 106 mg/dL 09/24/2012 12:09 PM [facility] Sodium 139 136 - 145 mmol/L 09/24/2012 12:09 PM [facility] Potassium 3.6 3.5 - 5.1 mmol/L 09/24/2012 12:09 PM [facility] Chloride 103 98 - 107 mmol/L 09/24/2012 12:09 PM [facility] CO2 28 22 - 31 mmol/L 09/24/2012 12:09 PM [facility] Calcium 8.8 8.5 - 10.1 mg/dL 09/24/2012 12:09 PM [facility] Anion Gap 8 5 - 15 mmol/L 09/24/2012 12:09 PM [facility] BUN 13 7 - 21 mg/dL 09/24/2012 12:09 PM [facility] Creatinine 0.70 0.50 - 1.30 mg/dL 09/24/2012 12:09 PM [facility] eGFR by MDRD >60 >60 ml/min/1.7 3m2 09/24/2012 12:09 PM [facility] eGFR by MDRD >60 >60 ml/min/1.7 3m2 09/24/2012 12:09 PM [facility] Alkaline Phosphatase 64 38 - 126 U/L 09/24/2012 12:09 PM [facility] ALT 36 12 - 78 U/L 09/24/2012 12:09 PM [facility] AST 14 5 - 40 U/L 09/24/2012 12:09 PM [facility] Protein Total 7.5 6.4 - 8.2 gm/dL 09/24/2012 12:09 PM [facility] Albumin 3.7 3.4 - 5.0 gm/dL 09/24/2012 12:09 PM [facility] Bilirubin Total 0.6 0.2 - 1.0 mg/dL 09/24/2012 12:09 PM [facility] Blood specimen (specimen) BLOOD SPECIMEN / Unknown 09/24/2012 10:19 AM [facility] 09/24/2012 11:01 AM SOFTWARE TEST AND VALIDATION ENGINEER us Dara Rogers MD LAB - CHEMISTRY ORDERABLES Fin al Result [facility] [address] [place] [address] from Last 3 Months or Most Recently Relevant to Health Maintenance Insurance [employer] Advance Directives * FULL RESUSCITATION (Latest Code Status on File) Date Activated Date Inactivated Comments 10/01/2012 5:25 PM 10/03/2012 3:45 PM Care Teams Food And Beverage Order Clerk Relationship Specialty Start Date End Date Mark Colmenares MD [address] [place] [address] PCP - General Family Medicine 06/24/21
--- OUTSIDE RECORDS SUMMARY | 2025-04-04 11:58 | XMS_ITS | Clinical Summary ---
Author Organization [facility] [place] Address [address] [address] Care Team Providers Care Chemistry Professor Name Role Phone Saad Cote MD Primary Care Provider Allergies Active Allergy Reactions Criticality Noted Date Comments Hydrocodone-Acetaminophen Itching,Nausea and Vomiting Low 06/27/2016 Medications phentermine (ADIPEX P) 37.5 mg tabletIndicatio ns:Obesity (BMI 30.0-34.9) Take 1 Tablet (37.5 mg) by mouth daily before breakfast. 90 Tablet 7 Active metFORMIN (GLUCOPHAGE) 500 mg tablet TAKE 1 TABLET DAILY WITH BREAKFAST 90 Tablet 1 7 Active losartan (COZAAR) 50 mg tablet TAKE 1 TABLET DAILY 90 Tablet 1 7 Active Active Problems Problem Noted Date Diagnosed Date Positive CHERRI (antinuclear antibody) 08/07/2016 Overview (08/07/2016): Homogenous pattern. Assessment & Plan (08/07/2016 4:47 PM TOP INSTALLER): Would recommend rheumatology referral for further evaluation. Obesity (BMI 30.0-34.9) 06/27/2016 Assessment & Plan (11/28/2016 12:16 PM CDT): Current disease status: Improving Wt Readings from Last 3 Encounters: 11/28/16 78 kg (172 lb) 10/20/16 78.9 kg (174 lb) 08/07/16 80.7 kg (178 lb) MORBID OBESITY - Body mass index is 31.46 kg/(m^2). Recommend watching the diet eliminating sweets and reducing refined carbohydrates. Recommend also reducing foods containing saturated fat and cholesterol. Whole grains, fruits, vegetables and lean cuts of meat preferring poultry and fish are recommended. Food portion control is also important and helpful to effect weight loss. Participating in regularly scheduled exercise. 20 - 30 minutes daily 5 times per week was recommended. She'll continue with phentermine for a second month. She'll continue to monitor her blood pressure. She should notify the office of any concerns. Assessment & Plan (08/07/2016 4:47 PM TOP INSTALLER): Current disease status: Improving BMI PLAN OF CARE Normal BMI ranges: 18-64 yrs: > or = 18.5 and < 25 65 yrs and older: > or = 23 and < 30 Body mass index is 32.56 kg/(m^2). Abnormal high BMI: patient counseled on lifestyle modifications including weight loss and daily exercise. Weight management options discussed. Medical conditions secondary to her obesity include hypertension, dyslipidemias, diabetes mellitus, sleep apnea/hypopnea. The role of obesity in her current health conditions, risk of future morbidity/mortality and the importance of weight loss in improving these conditions and her overall health was discussed. She was instructed to watch her diet eliminating sweets and reducing refined carbohydrates. She should also watch her diet regarding foods containing saturated fat and cholesterol. Whole grains, fruits, vegetables and lean cuts of meat preferring poultry and fish were recommended. Food portion control is also important and helpful to effect weight loss. She was encouraged to participate in regularly scheduled exercise. 20 - 30 minutes daily 5 times per week was recommended. He'll continue with phentermine for a second month. She should continue with her exercise and dietary efforts. Assessment & Plan (06/27/2016 9:39 AM TOP INSTALLER): Current disease status: Stable and Suboptimal control BMI PLAN OF CARE Normal BMI ranges: 18-64 yrs: > or = 18.5 and < 25 65 yrs and older: > or = 23 and < 30 Body mass index is 32.92 kg/(m^2). Abnormal high BMI: patient counseled on lifestyle modifications including weight loss and daily exercise. Weight management options discussed. Medical conditions secondary to her obesity include sleep apnea/hypopnea. The role of obesity in her current health conditions, risk of future morbidity/mortality and the importance of weight loss in improving these conditions and her overall health was discussed. She was instructed to watch her diet eliminating sweets and reducing refined carbohydrates. She should also watch her diet regarding foods containing saturated fat and cholesterol. Whole grains, fruits, vegetables and lean cuts of meat preferring poultry and fish were recommended. Food portion control is also important and helpful to effect weight loss. She was encouraged to participate in regularly scheduled exercise. 20 - 30 minutes daily 5 times per week was recommended. She was encouraged to continue with her exercise efforts. She will have laboratory studies performed. Obstructive sleep apnea 06/27/2016 Assessment & Plan (11/28/2016 12:15 PM CDT): Current disease status: Stable. Recommend she continue using her CPAP machine. Assessment & Plan (06/27/2016 9:39 AM TOP INSTALLER): Recommend she continue using her CPAP machine. Prediabetes 06/27/2016 Assessment & Plan (11/28/2016 12:15 PM CDT): Current disease status: Stable. FATEMEH/ARB therapy: in place, continue. She was instructed to be vigilant of her diet eliminating sweets and reducing refined carbohydrates. Her recent HGBA1C was Lab Results Component Value Date/Time HGBA1C 5.7 (H) 06/27/2016 10:18 AM . A full dilated eye exam by an brush or broom cutter or literacy teacher annually is recommended. The eye exam can help identify any changes early to allow prompt treatment and preservation of one's vision. The consequence of inadequately controlled diabetes include the development of neuropathy, diabetic retinopathy with decreased vision and possible blindness, increased risk for heart attack and stroke and worsening kidney function leading to kidney failure. She will have a hemoglobin A1c performed at her next visit. Assessment & Plan (08/07/2016 4:47 PM TOP INSTALLER): Current disease status: Stable and Controlled. FATEMEH/ARB therapy: in place, continue. She was instructed to be vigilant of her diet eliminating sweets and reducing refined carbohydrates. Her recent HGBA1C was Lab Results Component Value Date/Time HGBA1C 5.7 (H) 06/27/2016 10:18 AM . A full dilated eye exam by an brush or broom cutter or literacy teacher annually is recommended. The eye exam can help identify any changes early to allow prompt treatment and preservation of one's vision. The consequence of inadequately controlled diabetes include the development of neuropathy, diabetic retinopathy with decreased vision and possible blindness, increased risk for heart attack and stroke and worsening kidney function leading to kidney failure. Rectal and she continue with metformin. Assessment & Plan (06/27/2016 9:40 AM TOP INSTALLER): Current disease status: Stable. FATEMEH/ARB therapy: in place, continue. She was instructed to be vigilant of her diet eliminating sweets and reducing refined carbohydrates. Her recent HGBA1C was No results found for: HGBA1C, [id number]. A full dilated eye exam by an brush or broom cutter or literacy teacher annually is recommended. The eye exam can help identify any changes early to allow prompt treatment and preservation of one's vision. The consequence of inadequately controlled diabetes include the development of neuropathy, diabetic retinopathy with decreased vision and possible blindness, increased risk for heart attack and stroke and worsening kidney function leading to kidney failure. She will have laboratory studies performed. Kidney stones 06/27/2016 Assessment & Plan (06/27/2016 9:40 AM TOP INSTALLER): Recommend she maintain good hydration. She should notify the office of any concerns. Myalgia 06/27/2016 Assessment & Plan (06/27/2016 9:41 AM TOP INSTALLER): Recommend she continue to remain as active as she is able. She will have laboratory studies performed to rule out an inflammatory/autoimmune process. She may consider ibuprofen or Aleve when necessary. Family History Medical History Relation Name Comments Hypertension Brother Hypertension Father Lung Cancer Maternal Grandfather Cancer Maternal Grandmother Heart Attack Mother Hypertension Mother Unknown Paternal Grandfather COPD Paternal Grandmother Diabetes Paternal Grandmother Relation Name Status Comments Brother Father Maternal Grandfather Maternal Grandmother Mother Paternal Grandfather Paternal Grandmother Social History Tobacco Use Types Packs/Day Years Used Date Smoking Tobacco: Never Smokeless Tobacco: Never Alcohol Use Standard Drinks/Week Comments Yes 0 (1 standard drink = 0.6 oz pur e alcohol) social Comments No Sex and Gender Information Value Date Recorded Sex Assigned at Not on file Legal Sex Female 2:02 PM CDT Gender Identity Not on file Sexual Orientation Not on file Last Filed Vital Signs Vital Sign Reading Time Taken Comments Blood Pressure 121/90 11/28/2016 11:48 AM CDT Pulse 105 11/28/2016 11:48 AM CDT Temperature 36.4 C (97.5 F) 11/28/2016 11:48 AM CDT Respiratory Rate 16 11/28/2016 11:48 AM CDT Oxygen Saturation 98% 11/28/2016 11:48 AM CDT Inhaled Oxygen Concentration - - Weight 78 kg (172 lb) 11/28/2016 11:48 AM CDT Height 157.5 cm (5' 2) 11/28/2016 11:48 AM CDT Body Mass Index 31.46 11/28/2016 11:48 AM CDT Plan of Treatment Health Maintenance Due Date Last Done Comments DTAP/TDAP/TD VACCINES (1 - Tdap) 1989 HEPATITIS B VACCINES (1 of 3 - 19+ 3-dose series) 08/20 HPV/Cotest (21-29) 1991 CERVICAL CANCER SCREENING 2000 HPV/Cotest (30-65) 2000 PAP SMEAR 2000 BREAST CANCER SCREENING 2010 COLORECTAL SCREENING 2015 Colorectal Cancer Screening 2015 FIT-DNA Q 3 years 2015 FIT/FOBT Q 1 year 2015 Flex Sig/CT Colonography Q 5 years 2015 ZOSTER VACCINE (1 of 2) 2020 Preventative Visit- Commercial 07/20/2024 INFLUENZA VACCINE (#1) 2025 Insurance BS BLUE ACCESS/TRUE BLUE PPO Care Teams Chemistry Professor Relationship Specialty Start Date End Date Saad Cote MD [address] [place] [address] [address] [place] [address] PCP - General Family Practice 06/27/16
--- OUTSIDE RECORDS SUMMARY | 2025-04-04 11:58 | XMS_ITS | Clinical Summary ---
Author Organization [facility] Address [address] [place] [address] Care Team Providers Care Deburrer Name Role Phone Mark Colmenares MD Primary Care Provider [phone] Surjit Carter MD Unavailable [phone] Avery Mahmood MD Unavailable [phone] Miscellaneous, Not In File Unavailable Unava ilable Ronal Nathan MD Unavailable [phone] Allergies Active Allergy Reactions Criticality Noted Date Comments Hydrocodone Itching,Nausea only Low 08/16/2018 Medications sodium, potassium & mag sulfates (SUPREP BOWEL KIT) 17.5-3.13-1.6 gram recon solnIndications :Bowel Evacuation Drink first half of prep at 6:00pm the night before procedure. Drink second half of prep 4 hours prior to leaving home for procedure. 354 mL 12/15/2023 Active Active Problems Problem Noted Date Diagnosed Date Bacterial pneumonia 04/23/2023 Complicated UTI (urinary tract infection) 2022 Acute renal insufficiency 04/23/2023 Bilateral pleural effusion 04/23/2023 Acute urinary obstruction 04/23/2023 Kidney stone 04/21/2023 Diverticulitis 04/09/2023 Right renal stone 03/24/2023 Left ureteral stone 05/05/2022 Overview (05/05/2022): Added automatically from request for surgery [id number] Malignant neoplasm screen 10/19/2018 Overview (10/19/2018): Added automatically from request for surgery [id number] Acute diverticulitis 08/14/2018 Microscopic hematuria 08/14/2018 Leukocytosis 08/14/2018 Telangiectasia 08/11/2014 Sebaceous cyst 08/11/2014 Surgical History Surgery Date Site/Laterality Comments HYSTERECTOMY 07/20/2012 - 07/19/2013 SECTION 05/20/1998 - 06/18/1998 EXPLORATORY LAPAROTOMY 07/20/2012 - 07/19/2013 BSO, appendectomy LITHOTRIPSY NEPHROURETERAL STENT PLACEME NT NEW ACCESS RIGHT 04/21/2023 Right URETERAL STENT PLACEMENT VIA EXISTING TRACT RIGHT 04/22/2023 Right THORACENTESIS W IMAGING RIGHT 04/23/2023 Right APPENDECTOMY 07/20/2008 - 07/19/2009 COLONOSCOPY RECTOCELE REPAIR 07/20/2021 - 07/19/2022 OTHER SURGICAL HISTORY 07/20/2022 - 07/19/2023 PCNL Medical History Medical History Date Comments Kidney stone Sleep apnea Diverticulitis 07/2018 History of adenomatous polyp of colon 2016 Ovarian cyst Kidney problem Family History Medical History Relation Name Comments colo/rectal polyps Father No Known Problems Mother Relation Name Status Comments Father Mother Social History Tobacco Use Types Packs/Day Years Used Date Smoking Tobacco: Never Smokeless Tobacco: Never Tobacco Cessation:Counseling Given: Not Answered Alcohol Use Standard Drinks/Week Comments Yes 0 (1 standard drink = 0.6 oz pur e alcohol) Social Connection and Isolation Panel Answer Date Recorded In a typical week, how many times do you talk on the phone with family, friends, or neighbors? More than three times a week 04/24/2023 How often do you get togethe r with friends or relatives? Three times a week 04/24/2023 How often do you attend chur ch or jewish services? More than 4 times per year 04/24/2023 Do you belong to any clubs o r organizations such as spiritism groups, unions, fraternal or athletic groups, or school groups? No 04/24/2023 How often do you attend meet ings of the clubs or organizations you belong to? Never 04/24/2023 Are you , , di vorced, , never , or living with a partner? 04/24/2023 AUDIT-C Answer Date Recorded Q1: How often do you have a drink containing alc ohol? Never 01/04/2024 Average Number of Drinks Not on file 024 Frequency of Binge Drinking Not on file 12/18 Overall Financial Resource Strain (CARDIA) Answe r Date Recorded How hard is it for you to pa y for the very basics like food, housing, medical care, and heating? Not very hard 04/24/2023 Hunger Vital Sign Answer Date Recorded Within the past 12 months, y ou worried that your food would run out before you got the money to buy more. Never true 04/24/20 23 Within the past 12 months, t he food you bought just didn't last and you didn't have money to get more. Never true 04/24/2023 PRAPARE - Transportation Answer Date Re corded In the past 12 months, has l ack of transportation kept you from medical appointments or from getting medications? No 12/2022 In the past 12 months, has l ack of transportation kept you from meetings, work, or from getting things needed for daily living? No 04/24/2023 Housing Stability Vital Sign Answer Bobby e Recorded In the last 12 months, was t here a time when you were not able to pay the mortgage or rent on time? No 04/24/2023 In the last 12 months, how many places have you lived? 1 04/24/2023 In the last 12 months, was t here a time when you did not have a steady place to sleep or slept in a long-term (including now)? No 04/24/2023 Personal Safety Answer Date Recorded Have you ever been in or are you currently in a harmful physical or emotional relationship or is someone making you feel afraid or unsafe? 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 Gender Identity Not on file Sexual Orientation Not on file Obstetrics History Last Filed Vital Signs Vital Sign Reading Time Taken Comments Blood Pressure 145/91 01/04/2024 10:20 AM CDT Pulse 57 01/04/2024 10:20 AM CDT Temperature 36.2 C (97.2 F) 01/04/2024 9:59 AM CDT Respiratory Rate 21 01/04/2024 10:20 AM CDT Oxygen Saturation 100% 01/04/2024 10:20 AM CDT Inhaled Oxygen Concentration - - Weight 81.6 kg (180 lb) 01/04/2024 8:45 AM CDT Height 157.5 cm (5' 2) 01/04/2024 8:45 AM CDT Body Mass Index 32.92 01/04/2024 8:45 AM CDT Plan of Treatment Health Maintenance Due Date Last Done Comments Breast Cancer Screening-Mammogram 1970 Depression Screening 1970 Hepatitis C Screening 1970 DTaP/Tdap/Td Vaccine (1 - Tdap) 1981 Hepatitis B Screening 1988 Regular Well Visit/Exam 18-64 1988 Zoster Vaccine (1 of 2) 2020 Influenza Vaccine (#1) 2025 Colon Cancer Screening-Colonoscopy 01/03/2034 01/04/2024, 05/08/2016 Pneumococcal vaccine <65 Aged Out No longer eligible based on patient's age to complete this topic Medical Devices Implanted Type Area Business Applications Analyst Device Identifier Shelf Expiration Date Model / Serial / Lot [employer] Contour Vl 4.8fr 22-30cm Taper Tip Bladder Clarence Low Profile Large Latex Free [id number] - [facility] - [id number] Implanted:Qty: 1 on 05/06/2022 by Adam Avila MD at [facility] Stent Left: Ureter [employer] 01/12/2025 [id number] / NONE / [id number] [employer] Amplatz Rb 8.5fr 28cm 6 Sideport Introducer Catheter String [id number] - [id number] Implanted:Qty: 1 on 04/22/2023 at [facility] [employer] 12/10/2025 [id number] / / [id number] Procedures Procedure Name Priority Date/Time Associated Diagnosis Comments COLONOSCOPY 01/04/2024 9:27 AM CDT from Last 3 Months or Most Recently Relevant to Health Maintenance Results * Colonoscopy (01/04/2024 9:27 AM CDT) Anatomical Region Laterality Modality Other Narrative Procedure Note Ronal Nathan MD - 01/04/2024 9:27 AM CDT ENDOSCOPY LAB Patient Name: Kathie Ragland Procedure Date: 01/04/2024 9:27 AM Date of : 1970 Admit Type: Outpatient Age: 53 Gender: Female Attending MD: Ronal Nathan M.D. Room: [facility] ENDOSCOPY ROOM 02 Note Status: Finalized Procedure: Colonoscopy Indications: High risk colon cancer surveillance: Personalhistory of colonic polyps Providers: Ronal Nathan M.D. Referring MD: Mark Colmenares M.D. Medicines: Monitored Anesthesia Care Complications: No immediate complications. Estimated Blood Loss: Estimated blood loss: none. Procedure: Pre-Anesthesia Assessment: - Immediately prior to administration ofmedications, the patient was re-assessed for adequacy to receive sedatives. The benefits, risks and alternatives of theprocedure and sedation were discussed and informed consentwas obtained. All questions were answered. Please referto the signed informed consent document in the medical record. The scope was passed under direct vision.The [id number] was introduced through the anusand advanced to the cecum, identified by appendiceal orifice and ileocecal valve. The colonoscopy was performed without difficulty. The patient tolerated the procedure well. The quality of the bowel preparation was evaluated using the BBPS (BostonBowel Preparation Scale) with scores of: Right Colon = 3, Transverse Colon = 3 and Left Colon = 3 (entiremucosa seen well with no residual staining, smallfragments of stool or opaque liquid). The total BBPS score equals 9. The bowel preparation used was SUPREP via split dose instruction. Findings: The perianal and digital rectal examinations were normal. Multiple diverticula were found in the entire colon. The exam was otherwise without abnormality on direct and retroflexion views. Impression: - Diverticulosis in the entire examined colon. - The examination was otherwise normal on directand retroflexion views. - No specimens collected. Recommendation: - Repeat colonoscopy in 10 years forsurveillance. Ronal Nathan MD Ronal Nathan M.D. 01/04/2024 9:53:55 AM Number of Addenda: 0 Note Initiated On: 01/04/2024 9:27 AM Ronal Nathan MD ENDOSCOPY PROCEDURES Fi nal Result from Last 3 Months or Most Recently Relevant to Health Maintenance Insurance [facility] [employer] [place] [address] [place] [id number] Advance Directives For more information, please contact: [phone] * Full Code (Latest Code Status on File) Date Activated Date Inactivated Comments 01/04/2024 8:48 AM 01/04/2024 2:40 PM * Full Code Date Activated Date Inactivated Comments 04/23/2023 7:12 PM 04/24/2023 5:43 PM * Full Code Date Activated Date Inactivated Comments 04/21/2023 8:23 PM 04/22/2023 7:20 PM * Full Code Date Activated Date Inactivated Comments 04/09/2023 11:58 PM 04/11/2023 5:48 PM * Full Code Date Activated Date Inactivated Comments 08/14/2018 7:54 PM 08/17/2018 9:30 PM Healthcare Agents on File Name Relationship Healthcare Agent Relationshi p Communication Ray Ellyn Spouse Health Care Agent Care Teams Deburrer Relationship Specialty Start Date End Date Mark Colmenares MD [address] [address] PCP - General Family Medicine 04/10/23 Surjit Carter MD [address] [place] [address] Surgeon General Surgery 04/11/23 Avery Mahmood MD [address] [place] [address] Consulting Physician Urology 04/22/23 Miscellaneous, Not In File 04/24/23 Ronal Nathan MD [phone] [place] [address] Surgeon Colon and Rectal Surgery 12/02/23
== END 2025-04-04 10:17 | disposition home or self-care (01) ==
LOC: ANHCARD 10:18
PROVIDERS: PCP Family Medicine; Visit Provider Nurse Practitioner Family
DX: R07.9 Chest pain, unspecified (principal)
CPT/HCPCS: 93005; 93017